=== PATIENT | female | born 1935 | race Caucasian/White ===

== ENCOUNTER 2017-10-26 10:39 | Emergency (ER) | payer MEDICARE, BC ==
[2017-10-26] MEDS ORDERED: Sodium Chloride 0.9% 1,000 ML IV ONE (11:27)
[2017-10-26] MEDS ORDERED: Ondansetron 4 MG/2 ML SDV IVPUSH ONE (11:27)
[2017-10-26] MEDS ORDERED: Ondansetron 4 MG/2 ML SDV ONE (11:42)
[2017-10-26] MEDS ORDERED: Ketorolac 30 MG/ML SDV IVPUSH ONE (12:27)
[2017-10-26] MEDS ORDERED: Ketorolac 30 MG/ML SDV ONE (12:42)
[2017-10-26] MEDS ORDERED: Sodium Chloride 0.9% 1,000 ML IV SCH (13:52)
[2017-10-26] MEDS ORDERED: metroNIDAZOLE/Normal Saline 500 MG in Premix Bag 1 BAG IV ONE (14:00)
[2017-10-26] MEDS ORDERED: cefTRIAXone 1 GM in Sodium Chloride 0.9% 50 ML IV ONE (14:02)
[2017-10-26] MEDS ORDERED: Morphine 2 MG/ML Syringe IVPUSH PRN (14:08)
[2017-10-26 14:47] VITALS: BP 112/63
--- NOTE | 2017-10-26 15:57 | ER ---
HPI: An 82-year-old lady who comes in by ambulance with complaints of nausea, vomiting, and abdominal pain that started during the night. The patient has not been running a fever to her knowledge. She denies any episodes of diarrhea. She has not been coughing and denies any shortness of breath. She states she just does not feel well. She has vomited several times. PAST MEDICAL HISTORY: Includes hypertension and chronic back pain. OBJECTIVE: GENERAL APPEARANCE: The patient is awake and alert. She appears drowsy. No respiratory distress. VITAL SIGNS: Initially revealed blood pressure of 129/70 , temp is 99.8, pulse is 129, O2 sats are 97%, respirations 20. Physical exam, oral mucous membranes are dry. Tonsils not enlarged or injected. Pharynx not inflamed. NECK: Supple. LUNGS: Clear. CARDIAC: Heart sounds distinct. S1, S2 present. No murmurs noted. ABDOMEN: Tender with guarding noted across the epigastric area and to a lesser degree of the periumbilical area. The lower quadrants appear to be nontender with palpation. Abdomen appears slightly distended. Bowel sounds are present, but hypoactive. SKIN: Warm and dry. LABS: Include a CBC showing a white count of 10.5 normal, hemoglobin is 9.7, neutrophils are 87.3. Comprehensive metabolic panel shows a potassium of 3.4, BUN is normal at 26, creatinine is normal at 0.98, blood sugar is 183, nonfasting. Liver enzymes are unremarkable. UA is normal. CT of the abdomen shows diverticulitis with severe diverticulosis involving the transverse colon with 1 abscess that is contained approximately 3 cm in size. There is also some inflammation of the ascending colon, thought to possibly be colitis. DIAGNOSIS: Acute abdominal pain with diverticulitis that involves an abscess. TREATMENT PLAN: I did consult with Dr. Dewey, hospitalist at [facility], and they accepted the patient. She will be transferred down there for further evaluation and treatment, possibly surgery. We did give the patient 15 mg of Toradol here IV followed by 2 mg of morphine to help with her pain and we also started antibiotics, Flagyl 500 mg IV followed by Rocephin 1 g IV. CRS/MODL /[id number] [facility]
--- NOTE | 2017-10-27 09:48 | CT ---
DATE OF SERVICE: 10/26/17 CLINICAL DATA: Acute abdominal pain with nausea and vomiting. UNENHANCED ABDOMEN AND PELVIC CT: Multislice acquisition through the abdomen and pelvis without IV or oral contrast was performed. Comparison is made to a prior exam dated 12/31/15. Breathing motion artifact degrades image quality. There are atelectatic changes in the dependent portion of both lungs. The lung bases are otherwise clear. The heart size is normal. There are coronary artery calcifications. There is a small hiatal hernia. There is diffuse gastric wall thickening. This is probably related to nondistension. Gastritis or an infiltrating process should be considered. The gallbladder is abnormal. It is mildly distended. There are multiple gallstones noted within the gallbladder. No pericholecystic fluid. The liver is normal size with homogeneous attenuation. No focal hepatic lesions. The spleen appears normal. The pancreas is mildly atrophic but otherwise appears normal. The right and left adrenals appear normal. There is a 2.2 cm fluid density lesion protruding from the upper pole of the left kidney. There is another 8.1 cm fluid density lesion protruding from the lower pole of the left kidney. These are consistent in appearance with benign cysts. There is a small nonobstructing renal calculi on the left. No hydronephrosis or hydroureter. The bladder is fluid-filled and appears normal. There is diverticulosis throughout the colon. There is pericolonic fat stranding adjacent to the mid transverse colon. This is consistent with diverticulitis. There is also a 2.8 cm gas and fluid-containing mass adjacent to the transverse colon with adjacent mural thickening. This is consistent in appearance with a diverticular abscess. The possibility of an infiltrating neoplasm with perforation should also be considered and colonoscopy after treatment is recommended. There is mural thickening within the cecum and ascending colon. Colitis should be considered. No free intraperitoneal air. There is a small amount of free fluid noted within the pelvis. There are multiple calcified lesions within the uterus consistent with uterine calcified leiomyoma. No adenopathy. No aortic aneurysm. No dilated loops of bowel. IMPRESSION: Diverticulosis. Findings involving transverse colon consistent with diverticulitis. There is an adjacent gas and fluid-containing mass as discussed above, most likely representing diverticular abscess. There is also adjacent mural thickening within the adjacent colon. The possibility of an infiltrating neoplasm with perforation should at least be considered. Colonoscopy after treatment is recommended. Multiple other findings as discussed above. [id number] MTDD
== END 2017-10-26 16:36 ==
LOC: LB.ED 10:39
DX: K57.92 Diverticulitis of intestine, part unspecified, without perforation or abscess without bleeding (principal); I10 Essential (primary) hypertension
CPT/HCPCS: 36415; 74176; 80053; 81001; 82150; 83690; 85025; 96361; 96365; 96367; 96375; 99285-25; A0425; A0429; J0696; J1885; J2270; J2405; J3490; J7030; J7050

== ENCOUNTER 2017-11-17 09:49 | Inpatient (IN) | payer MEDICARE, BC ==
[2017-11-17] MEDS ORDERED: Tuberculin, PPD 5 Units/0.1 ML 1 ML MDV IDERM ONE ×2 (14:12→14:23)
[2017-11-17] MEDS ORDERED: Acetaminophen 325 MG Tab PO PRN ×2 (15:51→19:26)
[2017-11-17] MEDS ORDERED: Ondansetron 4 MG Tab.DIS PO PRN (15:51)
[2017-11-17] MEDS ORDERED: Aluminum Hydroxide/Magnesium Hydroxide/Simethicone Susp 30 ML Cup PO PRN (15:51)
[2017-11-17] MEDS ORDERED: Nitroglycerin 0.4 MG Tab.SL SL PRN (16:00)
[2017-11-17] MEDS: Rivaroxaban 15 MG Tab PO SCH (17:22)
[2017-11-17] MEDS: traMADol 50 MG Tab PO SCH ×2 (17:22→19:43)
[2017-11-17] MEDS ORDERED: Lactobacillus Acidophilus/Lactobacillus Sporogenes (Probiotic) Tab ONE (17:39)
[2017-11-17] MEDS: metroNIDAZOLE 500 MG Tab PO SCH (19:42)
[2017-11-17] MEDS: Amitriptyline 25 MG Tab PO SCH (19:43)
[2017-11-17] MEDS ORDERED: PSYLLIUM PO SCH (20:00)
[2017-11-17] MEDS: Melatonin 3 MG Tab PO SCH (20:56)
[2017-11-18] MEDS: Clopidogrel 75 MG Tab PO SCH (07:33)
[2017-11-18] MEDS: Metoprolol Succinate 50 MG Tab.ER PO SCH (07:33)
[2017-11-18] MEDS: Diltiazem 180 MG Cap.CD PO SCH (07:34)
[2017-11-18] MEDS: metroNIDAZOLE 500 MG Tab PO SCH ×3 (07:34→20:11)
[2017-11-18] MEDS: Lisinopril 2.5 MG Tab PO SCH (07:34)
[2017-11-18] MEDS: Levofloxacin 500 MG Tab PO SCH (07:34)
[2017-11-18] MEDS: Isosorbide Mononitrate 30 MG Tab.ER PO SCH (07:34)
[2017-11-18] MEDS: Hydrochlorothiazide 25 MG Tab PO SCH (07:34)
[2017-11-18] MEDS: traMADol 50 MG Tab PO SCH ×5 (07:35→20:11)
[2017-11-18] MEDS: atorvaSTATin 20 MG Tab PO SCH (07:35)
[2017-11-18] MEDS: Multivitamins with Iron/Calcium/Folic Acid/Minerals Tab PO SCH (07:36)
[2017-11-18] MEDS ORDERED: Lactobacillus Acidophilus/Lactobacillus Sporogenes (Probiotic) Tab ONE (07:47)
[2017-11-18] MEDS: Lactobacillus Acidophilus/Lactobacillus Sporogenes (Probiotic) Tab PO SCH ×2 (08:00→12:29)
[2017-11-18] MEDS ORDERED: Lactobacillus Acidophilus/Lactobacillus Sporogenes (Probiotic) Tab PO SCH (08:00)
[2017-11-18] MEDS: Rivaroxaban 15 MG Tab PO SCH (16:15)
[2017-11-18] MEDS: Amitriptyline 25 MG Tab PO SCH (20:11)
[2017-11-18] MEDS: Melatonin 3 MG Tab PO SCH (20:11)
[2017-11-19] MEDS: Hydrochlorothiazide 25 MG Tab PO SCH (09:00)
[2017-11-19] MEDS: metroNIDAZOLE 500 MG Tab PO SCH ×3 (09:00→21:08)
[2017-11-19] MEDS: Metoprolol Succinate 50 MG Tab.ER PO SCH (09:01)
[2017-11-19] MEDS: Diltiazem 180 MG Cap.CD PO SCH (09:02)
[2017-11-19] MEDS: Multivitamins with Iron/Calcium/Folic Acid/Minerals Tab PO SCH (09:02)
[2017-11-19] MEDS: traMADol 50 MG Tab PO SCH ×4 (09:02→21:08)
[2017-11-19] MEDS: Isosorbide Mononitrate 30 MG Tab.ER PO SCH (09:02)
[2017-11-19] MEDS: Levofloxacin 500 MG Tab PO SCH (09:03)
[2017-11-19] MEDS: Clopidogrel 75 MG Tab PO SCH (09:03)
[2017-11-19] MEDS: Lisinopril 2.5 MG Tab PO SCH (09:03)
[2017-11-19] MEDS: atorvaSTATin 20 MG Tab PO SCH (09:03)
--- NOTE | 2017-11-19 11:47 | PCM.HP ---
H&P History of Present Illness - General Date of Service: 11/19/17 Admit Problem/Dx: Admission Diagnosis/Problem Admission Diagnosis/Problem Weakness Source of Information: Patient, Family, Old Records History Limitations: Reports: No Limitations - History of Present Illness Initial Comments - Free Text/Narative: This is a 82yo F with a recent right hemicolectomy for diverticulitis admitted to [facility] bed for wound care and physical therapy. Patient denies any concerns at this time with good pain control and diet. Location: Reports: Abdomen - Related Data Allergies/Adverse Reactions: Allergies Allergy/AdvReac Type Severity Reaction Status Date / Time No Known Allergies Allergy Verified 11/17/17 17:06 Home Medications: Home Meds Amitriptyline [Elavil] 25 mg PO BEDTIME 09/22/14 [History] Hydrochlorothiazide 25 mg PO DAILY 09/22/14 [History] traMADol HCl [Tramadol HCl] 50 mg PO QID 10/26/17 [History] Acetaminophen [Tylenol] 325 mg PO ASDIRECTED PRN 11/17/17 [History] Alum Hydrox/Mag Hydrox/Simeth [Mag-Al Plus] 30 ml PO Q4H PRN 11/17/17 [History] Clopidogrel [Plavix] 75 mg PO DAILY 11/17/17 [History] Diltiazem HCl [Diltiazem 24Hr ER] 180 mg PO DAILY 11/17/17 [History] Isosorbide Mononitrate [Imdur] 30 mg PO DAILY 11/17/17 [History] L. Acidophilus/Pectin, [employer] [Acidophilus Probiotic] 1 tab PO TID 11/17/17 [ History] Levofloxacin 500 mg PO DAILY 11/17/17 [History] Lisinopril 2.5 mg PO DAILY 11/17/17 [History] Metoprolol Succinate [Toprol XL 50mg] 50 mg PO DAILY 11/17/17 [History] Multivitamin [Multi-Vitamin Daily] 1 tab PO DAILY 11/17/17 [History] Nitroglycerin [Nitrostat] 1 tab PO ASDIRECTED 11/17/17 [History] Ondansetron [Zofran ODT] 4 mg PO ASDIRECTED PRN 11/17/17 [History] Psyllium [Metamucil] 2 cap PO BID 11/17/17 [History] Ranitidine HCl [Ranitidine] 150 mg PO DAILY 11/17/17 [History] Rivaroxaban [Xarelto] 15 mg PO DAILY 11/17/17 [History] atorvaSTATin [Lipitor] 20 mg PO DAILY 11/17/17 [History] metroNIDAZOLE [Metronidazole] 500 mg PO TID 11/17/17 [History] Past Medical History HEENT History: Reports: Cataract, Impaired Vision, Macular Degeneration Cardiovascular History: Reports: Afib, Arrhythmia, CAD, Hypertension, IA, Other (See Below) Other Cardiovascular History: A-fib. 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 Musculoskeletal History: Reports: Back Pain, Chronic, Fibromyalgia Psychiatric History: Reports: Depression Endocrine/Metabolic History: Reports: Hyperthyroidism Oncologic (Cancer) History: Reports: Colon - Infectious Disease History Infectious Disease History: Reports: Chicken Pox, Measles, Mumps - Past Surgical History HEENT Surgical History: Reports: Cataract Surgery GI Surgical History: Reports: Colon Other GI Surgeries/Procedures: Laporascopic Transvers colectomy 11/10/17 Female Surgical History: Reports: Other (See Below) Other Female Surgeries/Procedures: surgical intervention for prolapsed uterus Endocrine Surgical History: Reports: None Musculoskeletal Surgical History: Reports: None Oncologic Surgical History: Reports: Other (See Below) Other Oncologic Surgeries/Procedures: 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 Exam - Exam Exam: See Below - Vital Signs Vital Signs: Last Vital Signs Temp 36.7 C 11/18/17 20:00 Pulse 108 H 11/19/17 09:02 Resp 18 11/18/17 20:00 BP 120/65 11/19/17 09:03 Pulse Ox 95 08/16/18 20:00 Weight: 59.829 kg - Exam General: Alert, Oriented, Cooperative HEENT: PERRLA, Conjunctiva Clear Neck: Supple, Trachea Midline Lungs: Clear to Auscultation, Normal Respiratory Effort Cardiovascular: Regular Rate, Regular Rhythm GI/Abdominal Exam: Normal Bowel Sounds, Soft, Non-Tender Extremities: Normal Inspection Peripheral Pulses: 2+: Dorsalis Pedis (L), Dorsalis Pedis (R) Skin: Wound, Incision (healing) Neuro Extensive - Mental Status: Alert, Oriented x3 - Patient Data Lab Results Last 24 hrs: Laboratory Results - last 24 hr 11/19/17 11/19/17 Range/Units 10:50 10:50 WBC 7.1 D (4.0-11.0) K/uL RBC 3.53 L (3.80-5.80) M/uL Hgb 8.8 L (11.5-16.5) g/dL Hct 28.1 L (37.0-47.0) % MCV 80 (76-96) fL MCH 24.9 L (27.0-32.0) pg MCHC 31.3 (31.0-35.0) g/dL RDW 18.7 H (11.0-16.0) % Plt Count 307 (150-500) K/uL MPV 8.6 (6.0-10.0) fL Neut % (Auto) 81.1 H (45.0-70.0) % Lymph % (Auto) 9.1 L (20.0-40.0) % [place] % (Auto) 8.2 (3.0-10.0) % Eos % (Auto) 1.0 (1.0-5.0) % Baso % (Auto) 0.6 H (0.0-0.5) % Neut # (Auto) 5.77 (2.00-7.50) K/uL Lymph # (Auto) 0.65 L (1.50-4.00) K/uL [place] # (Auto) 0.58 (0.20-0.80) K/uL Eos # (Auto) 0.07 (0.04-0.40) K/uL Baso # (Auto) 0.04 (0.02-0.10) K/uL Sodium 136 (136-145) mmol/L Potassium 4.1 D (3.5-5.1) mmol/L Chloride 103 (98-107) mmol/L Carbon Dioxide 29.6 (21.0-32.0) mmol/L Anion Gap 7.5 (5.0-15.0) mmol/L BUN 13 D (8-26) mg/dL Creatinine 0.71 D (0.55-1.02) mg/dL Est Cr Clr Drug Dosing 46.65 mL/min Estimated GFR (MDRD) > 60 (>60) MLS/MIN BUN/Creatinine Ratio 18.3 (6-25) Glucose 195 H (74-100) mg/dL Calcium 7.7 L (8.5-10.1) mg/dL Total Bilirubin 0.3 (0.0-1.0) mg/dL AST 16 (15-37) U/L ALT 12 (12-78) U/L Alkaline Phosphatase 34 L (46-116) U/L Total Protein 5.0 L (6.4-8.2) g/dL Albumin 1.7 L (3.4-5.0) g/dL Globulin 3.3 (2.2-4.2) g/dL Albumin/Globulin Ratio 0.5 L (0.8-2.0) Result Diagrams: 11/19/17 10:50 11/19/17 10:50 - Problem List (1) Encounter for postoperative care Status: Acute Priority: High Current Visit: Yes (2) H/O right hemicolectomy SNOMED Code(s): 793452590 ICD Code: Z90.49 - ACQUIRED ABSENCE OF OTHER SPECIFIED PARTS OF DIGESTIVE TRACT Status: Acute Priority: High Current Visit: Yes Problem List Initiated/Reviewed/Updated: Yes Orders Last 24hrs: Active Orders 24 hr Category Date Time Status BASIC METABOLIC PANEL,BMP [CHEM] AM Lab 11/20/17 05:11 Ordered CBC WITH AUTO DIFF [HEME] AM Lab 11/20/17 05:11 Ordered Acidophilus/Lactobac Spor [Acidolphilus Extra Strength] Med 11/18/17 12:00 Active 1 tab PO DAILY@1200 Ranitidine [Zantac] Med 11/18/17 20:00 Active 150 mg PO BEDTIME Medication Orders Acetaminophen (Tylenol) 325 - 650 mg PO Q4H PRN PRN Reason: MILD PAIN 1-3 PAIN SCALE Al Hydroxide/Mg Hydroxide (Mag-Al Plus) 30 ml PO Q4H PRN PRN Reason: Indigestion Amitriptyline HCl (Elavil) 25 mg PO BEDTIME [facility] Last Admin: 11/18/17 20:11 Dose: 25 mg Admin: 11/17/17 19:43 Dose: 25 mg Atorvastatin Calcium (Lipitor) 20 mg PO DAILY [facility] Last Admin: 11/19/17 09:03 Dose: 20 mg Admin: 11/18/17 07:35 Dose: 20 mg Clopidogrel Bisulfate (Plavix) 75 mg PO DAILY [facility] Last Admin: 11/19/17 09:03 Dose: 75 mg Admin: 11/18/17 07:33 Dose: 75 mg Diltiazem HCl (Cardizem Cd) 180 mg PO DAILY [facility] Last Admin: 11/19/17 09:02 Dose: 180 mg Admin: 11/18/17 07:34 Dose: 180 mg Hydrochlorothiazide (Hydrochlorothiazide) 25 mg PO DAILY [facility] Last Admin: 11/19/17 09:00 Dose: 25 mg Admin: 11/18/17 07:34 Dose: 25 mg Isosorbide Mononitrate (Imdur) 30 mg PO DAILY [facility] Last Admin: 11/19/17 09:02 Dose: 30 mg Admin: 11/18/17 07:34 Dose: 30 mg Lactobacillus Acidophilus (Acidolphilus Extra Strength) 1 tab PO DAILY@1200 [facility] Last Admin: 11/18/17 12:29 Dose: Not Given Admin: 11/18/17 08:00 Dose: 1 tab Levofloxacin (Levaquin) 500 mg PO DAILY [facility] Stop: 11/25/17 08:01 Last Admin: 11/19/17 09:03 Dose: 500 mg Admin: 11/18/17 07:34 Dose: 500 mg Lisinopril (Prinivil) 2.5 mg PO DAILY [facility] Last Admin: 11/19/17 09:03 Dose: 2.5 mg Admin: 11/18/17 07:34 Dose: 2.5 mg Melatonin (Melatonin) 3 mg PO BEDTIME [facility] Last Admin: 11/18/17 20:11 Dose: 3 mg Admin: 11/17/17 20:56 Dose: 3 mg Metoprolol Succinate (Toprol Xl) 50 mg PO DAILY [facility] Last Admin: 11/19/17 09:01 Dose: 50 mg Admin: 11/18/17 07:33 Dose: 50 mg Metronidazole (Flagyl) 500 mg PO TID [facility] Stop: 11/25/17 08:01 Last Admin: 11/19/17 09:00 Dose: 500 mg Admin: 11/18/17 20:11 Dose: 500 mg Admin: 11/18/17 13:48 Dose: 500 mg Admin: 11/18/17 07:34 Dose: 500 mg Admin: 11/17/17 19:42 Dose: 500 mg Multivitamins/Minerals (Thera M Plus) 1 tab PO DAILY [facility] Last Admin: 11/19/17 09:02 Dose: 1 tab Admin: 11/18/17 07:36 Dose: 1 tab Nitroglycerin (Nitrostat) 0.4 mg SL ASDIRECTED PRN PRN Reason: CHEST PAIN Non-Formulary Medication (Psyllium [Metamucil]) 2 cap PO BID [facility] Ondansetron HCl (Zofran Odt) 4 mg PO Q6H PRN PRN Reason: Nausea Ranitidine HCl (Zantac) 150 mg PO BEDTIME [facility] Last Admin: 11/18/17 20:11 Dose: 150 mg Rivaroxaban (Xarelto) 15 mg PO DAILY@1700 [facility] Last Admin: 11/18/17 16:15 Dose: 15 mg Admin: 11/17/17 17:22 Dose: 15 mg Tramadol HCl (Ultram) 50 mg PO QID [facility] Last Admin: 11/19/17 09:02 Dose: 50 mg Admin: 11/18/17 20:11 Dose: 50 mg Admin: 11/18/17 16:14 Dose: 50 mg Admin: 11/18/17 15:39 Dose: 50 mg Admin: 11/18/17 12:29 Dose: Not Given Admin: 11/18/17 07:35 Dose: 50 mg Admin: 11/17/17 19:43 Dose: 50 mg Admin: 11/17/17 17:22 Dose: 50 mg Assessment/Plan Comment:: Patient will be monitored for wound care, strengthening and medication management. Continue pain management.
--- NOTE | 2017-11-19 11:50 | PCM.SN ---
- Free Text/Narrative Note: Stanley bright red blood par rectum today about 1/2 cup with loose brown stools. Discussed with Claudia (direct line [phone]) and CBC/labs were done and then discussed with Dr. Kaur on line. He recommends monitoring at this time as this can be expected. However, if symptoms progress, bleeding continues for transfer to [place] for monitoring. He will relay the information to Dr. Lozano ad operations associate this weekend. They are currently checking on whether to hold the Plavix with Dr. Dey at this time and will get back to us. Continuing current monitoring and we will repeat labs in AM.
[2017-11-19] MEDS: Lactobacillus Acidophilus/Lactobacillus Sporogenes (Probiotic) Tab PO SCH (14:38)
[2017-11-19] MEDS: Rivaroxaban 15 MG Tab PO SCH (18:17)
[2017-11-19] MEDS: Melatonin 3 MG Tab PO SCH (21:08)
[2017-11-19] MEDS: Amitriptyline 25 MG Tab PO SCH (21:08)
[2017-11-20] MEDS: traMADol 50 MG Tab PO SCH ×4 (08:44→19:55)
[2017-11-20] MEDS: Lisinopril 2.5 MG Tab PO SCH (08:45)
[2017-11-20] MEDS: Levofloxacin 500 MG Tab PO SCH (08:58)
[2017-11-20] MEDS: Isosorbide Mononitrate 30 MG Tab.ER PO SCH (08:59)
[2017-11-20] MEDS: atorvaSTATin 20 MG Tab PO SCH (08:59)
[2017-11-20] MEDS: Diltiazem 180 MG Cap.CD PO SCH (08:59)
[2017-11-20] MEDS: Multivitamins with Iron/Calcium/Folic Acid/Minerals Tab PO SCH (09:01)
[2017-11-20] MEDS: Metoprolol Succinate 50 MG Tab.ER PO SCH (09:01)
[2017-11-20] MEDS: metroNIDAZOLE 500 MG Tab PO SCH ×3 (09:02→19:56)
[2017-11-20] MEDS: Hydrochlorothiazide 25 MG Tab PO SCH (09:02)
[2017-11-20] MEDS: Lactobacillus Acidophilus/Lactobacillus Sporogenes (Probiotic) Tab PO SCH (14:34)
[2017-11-20] MEDS: Melatonin 3 MG Tab PO SCH (19:55)
[2017-11-20] MEDS: Amitriptyline 25 MG Tab PO SCH (19:55)
[2017-11-21] MEDS: traMADol 50 MG Tab PO SCH ×4 (08:30→19:24)
[2017-11-21] MEDS: metroNIDAZOLE 500 MG Tab PO SCH ×3 (08:34→19:24)
[2017-11-21] MEDS: Diltiazem 180 MG Cap.CD PO SCH (08:34)
[2017-11-21] MEDS: Isosorbide Mononitrate 30 MG Tab.ER PO SCH (08:35)
[2017-11-21] MEDS: Hydrochlorothiazide 25 MG Tab PO SCH (08:35)
[2017-11-21] MEDS: Levofloxacin 500 MG Tab PO SCH (08:36)
[2017-11-21] MEDS: Lisinopril 2.5 MG Tab PO SCH (08:36)
[2017-11-21] MEDS: Multivitamins with Iron/Calcium/Folic Acid/Minerals Tab PO SCH (08:37)
[2017-11-21] MEDS: Metoprolol Succinate 50 MG Tab.ER PO SCH (08:38)
[2017-11-21] MEDS: atorvaSTATin 20 MG Tab PO SCH (08:40)
[2017-11-21] MEDS: Lactobacillus Acidophilus/Lactobacillus Sporogenes (Probiotic) Tab PO SCH (12:39)
[2017-11-21] MEDS: Melatonin 3 MG Tab PO SCH (19:25)
[2017-11-21] MEDS: Amitriptyline 25 MG Tab PO SCH (19:25)
[2017-11-22] MEDS: Multivitamins with Iron/Calcium/Folic Acid/Minerals Tab PO SCH (08:21)
[2017-11-22] MEDS: Levofloxacin 500 MG Tab PO SCH (08:21)
[2017-11-22] MEDS: atorvaSTATin 20 MG Tab PO SCH (08:22)
[2017-11-22] MEDS: metroNIDAZOLE 500 MG Tab PO SCH ×3 (08:23→19:57)
[2017-11-22] MEDS: traMADol 50 MG Tab PO SCH ×4 (08:23→19:57)
[2017-11-22] MEDS: Diltiazem 180 MG Cap.CD PO SCH (08:27)
[2017-11-22] MEDS: Metoprolol Succinate 50 MG Tab.ER PO SCH (08:27)
[2017-11-22] MEDS: Lisinopril 2.5 MG Tab PO SCH (08:27)
[2017-11-22] MEDS: Isosorbide Mononitrate 30 MG Tab.ER PO SCH (08:27)
[2017-11-22] MEDS: Hydrochlorothiazide 25 MG Tab PO SCH (08:28)
[2017-11-22] MEDS: Lactobacillus Acidophilus/Lactobacillus Sporogenes (Probiotic) Tab PO SCH (11:57)
--- NOTE | 2017-11-22 17:09 | PCM.PN ---
- General Info Date of Service: 11/22/17 Subjective Update: Patient is doing well and improving daily. She denies any difficulty with walking but taking her time to improve on her strength with PT/OT. No concerns. Functional Status: Reports: Pain Controlled, Tolerating Diet, Ambulating - Review of Systems General: Reports: Weakness HEENT: Reports: No Symptoms Pulmonary: Reports: No Symptoms Cardiovascular: Reports: No Symptoms Gastrointestinal: Reports: No Symptoms Genitourinary: Reports: No Symptoms Musculoskeletal: Reports: Joint Pain - Patient Data Vitals - Most Recent: Last Vital Signs Temp 36.7 C 11/22/17 08:00 Pulse 106 H 11/22/17 08:27 Resp 20 11/22/17 08:00 BP 131/83 11/22/17 08:27 Pulse Ox 98 11/22/17 08:00 Weight - Most Recent: 53.524 kg I&O - Last 24 Hours: Intake & Output 11/22/17 11/22/17 11/22/17 06:59 14:59 22:59 Output Total 865 Balance -865 Lab Results Last 24 Hours: Laboratory Results - last 24 hr 11/22/17 11/22/17 Range/Units 12:05 12:05 WBC 10.1 D (4.0-11.0) K/uL RBC 3.91 (3.80-5.80) M/uL Hgb 9.7 L (11.5-16.5) g/dL Hct 31.0 L (37.0-47.0) % MCV 79 (76-96) fL MCH 24.8 L (27.0-32.0) pg MCHC 31.3 (31.0-35.0) g/dL RDW 18.8 H (11.0-16.0) % Plt Count 473 D (150-500) K/uL MPV 8.5 (6.0-10.0) fL Neut % (Auto) 78.1 H (45.0-70.0) % Lymph % (Auto) 11.3 L (20.0-40.0) % [place] % (Auto) 9.3 (3.0-10.0) % Eos % (Auto) 0.9 L (1.0-5.0) % Baso % (Auto) 0.4 (0.0-0.5) % Neut # (Auto) 7.90 H (2.00-7.50) K/uL Lymph # (Auto) 1.14 L (1.50-4.00) K/uL [place] # (Auto) 0.94 H (0.20-0.80) K/uL Eos # (Auto) 0.09 (0.04-0.40) K/uL Baso # (Auto) 0.04 (0.02-0.10) K/uL Sodium 134 L (136-145) mmol/L Potassium 4.2 (3.5-5.1) mmol/L Chloride 99 (98-107) mmol/L Carbon Dioxide 28.6 (21.0-32.0) mmol/L Anion Gap 10.6 (5.0-15.0) mmol/L BUN 14 D (8-26) mg/dL Creatinine 0.75 (0.55-1.02) mg/dL Est Cr Clr Drug Dosing 44.16 mL/min Estimated GFR (MDRD) > 60 (>60) MLS/MIN BUN/Creatinine Ratio 18.7 (6-25) Glucose 180 H (74-100) mg/dL Calcium 8.7 (8.5-10.1) mg/dL Med Orders - Current: Current Medications Acetaminophen (Tylenol) 325 - 650 mg PO Q4H PRN PRN Reason: MILD PAIN 1-3 PAIN SCALE Al Hydroxide/Mg Hydroxide (Mag-Al Plus) 30 ml PO Q4H PRN PRN Reason: Indigestion Amitriptyline HCl (Elavil) 25 mg PO BEDTIME [facility] Last Admin: 11/21/17 19:25 Dose: 25 mg Atorvastatin Calcium (Lipitor) 20 mg PO DAILY [facility] Last Admin: 11/22/17 08:22 Dose: 20 mg Clopidogrel Bisulfate (Plavix) 75 mg PO DAILY [facility] Last Admin: 11/19/17 09:03 Dose: 75 mg Diltiazem HCl (Cardizem Cd) 180 mg PO DAILY [facility] Last Admin: 11/22/17 08:27 Dose: 180 mg Hydrochlorothiazide (Hydrochlorothiazide) 25 mg PO DAILY [facility] Last Admin: 11/22/17 08:28 Dose: 25 mg Isosorbide Mononitrate (Imdur) 30 mg PO DAILY [facility] Last Admin: 11/22/17 08:27 Dose: 30 mg Lactobacillus Acidophilus (Acidolphilus Extra Strength) 1 tab PO DAILY@1200 [facility] Last Admin: 11/22/17 11:57 Dose: 1 tab Levofloxacin (Levaquin) 500 mg PO DAILY [facility] Stop: 11/25/17 08:01 Last Admin: 11/22/17 08:21 Dose: 500 mg Lisinopril (Prinivil) 2.5 mg PO DAILY [facility] Last Admin: 11/22/17 08:27 Dose: 2.5 mg Melatonin (Melatonin) 3 mg PO BEDTIME [facility] Last Admin: 11/21/17 19:25 Dose: 3 mg Metoprolol Succinate (Toprol Xl) 50 mg PO DAILY [facility] Last Admin: 11/22/17 08:27 Dose: 50 mg Metronidazole (Flagyl) 500 mg PO TID [facility] Stop: 11/25/17 08:01 Last Admin: 11/22/17 14:45 Dose: 500 mg Multivitamins/Minerals (Thera M Plus) 1 tab PO DAILY [facility] Last Admin: 11/22/17 08:21 Dose: 1 tab Nitroglycerin (Nitrostat) 0.4 mg SL ASDIRECTED PRN PRN Reason: CHEST PAIN Non-Formulary Medication (Psyllium [Metamucil]) 2 cap PO BID [facility] Ondansetron HCl (Zofran Odt) 4 mg PO Q6H PRN PRN Reason: Nausea Ranitidine HCl (Zantac) 150 mg PO BEDTIME [facility] Last Admin: 11/21/17 19:24 Dose: 150 mg Rivaroxaban (Xarelto) 15 mg PO DAILY@1700 [facility] Last Admin: 11/19/17 18:17 Dose: Not Given Tramadol HCl (Ultram) 50 mg PO QID [facility] Last Admin: 11/22/17 16:48 Dose: Not Given Discontinued Medications Acetaminophen (Tylenol) 325 mg PO ASDIRECTED PRN PRN Reason: pain Lactobacillus Acidophilus (Acidolphilus Extra Strength) 1 tab PO DAILY [facility] Last Admin: 11/18/17 07:36 Dose: 1 tab Lactobacillus Acidophilus (Acidolphilus Extra Strength) Confirm Administered Dose 1 tab .ROUTE .STK-MED ONE Stop: 11/17/17 17:40 Last Admin: 11/17/17 17:30 Dose: 1 tab Lactobacillus Acidophilus (Acidolphilus Extra Strength) Confirm Administered Dose 1 tab .ROUTE .STK-MED ONE Stop: 11/18/17 07:48 Last Admin: 11/18/17 09:39 Dose: Not Given Tuberculin PPD (Aplisol) 5 unit IDERM ONETIME ONE Stop: 11/17/17 14:24 Last Admin: 11/17/17 17:20 Dose: 5 unit Tuberculin PPD (Aplisol) 5 unit IDERM ONETIME ONE Stop: 11/17/17 14:13 Last Admin: 11/17/17 17:22 Dose: Not Given - Exam General: Alert, Oriented, Cooperative HEENT: Pupils Equal Neck: Supple Lungs: Clear to Auscultation, Normal Respiratory Effort Cardiovascular: Regular Rate, Regular Rhythm Back Exam: Normal Inspection Extremities: Normal Inspection Peripheral Pulses: 2+: Dorsalis Pedis (L), Dorsalis Pedis (R) Skin: Warm, Dry, Intact Wound/Incisions: Healing Well - Problem List & Annotations (1) Encounter for postoperative care Status: Acute Priority: High Current Visit: Yes (2) H/O right hemicolectomy SNOMED Code(s): 061655510 Code(s): Z90.49 - ACQUIRED ABSENCE OF OTHER SPECIFIED PARTS OF DIGESTIVE TRACT Status: Acute Priority: High Current Visit: Yes - Problem List Review Problem List Initiated/Reviewed/Updated: Yes - Plan Plan:: Patient will be monitored for wound care, strengthening and medication management. Continue pain management.
[2017-11-22] MEDS: Melatonin 3 MG Tab PO SCH (19:56)
[2017-11-22] MEDS: Amitriptyline 25 MG Tab PO SCH (19:56)
[2017-11-23] MEDS: Lisinopril 2.5 MG Tab PO SCH (07:57)
[2017-11-23] MEDS: Levofloxacin 500 MG Tab PO SCH (07:57)
[2017-11-23] MEDS: Isosorbide Mononitrate 30 MG Tab.ER PO SCH (07:57)
[2017-11-23] MEDS: Multivitamins with Iron/Calcium/Folic Acid/Minerals Tab PO SCH (07:57)
[2017-11-23] MEDS: traMADol 50 MG Tab PO SCH ×4 (07:57→20:40)
[2017-11-23] MEDS: atorvaSTATin 20 MG Tab PO SCH (07:57)
[2017-11-23] MEDS: Hydrochlorothiazide 25 MG Tab PO SCH (07:58)
[2017-11-23] MEDS: metroNIDAZOLE 500 MG Tab PO SCH ×3 (07:58→20:40)
[2017-11-23] MEDS: Diltiazem 180 MG Cap.CD PO SCH (07:58)
[2017-11-23] MEDS: Metoprolol Succinate 50 MG Tab.ER PO SCH (07:58)
[2017-11-23] MEDS: Clopidogrel 75 MG Tab PO SCH (08:02)
[2017-11-23] MEDS: Lactobacillus Acidophilus/Lactobacillus Sporogenes (Probiotic) Tab PO SCH (12:03)
[2017-11-23] MEDS: Rivaroxaban 15 MG Tab PO SCH (17:13)
[2017-11-23] MEDS: Amitriptyline 25 MG Tab PO SCH (20:40)
[2017-11-23] MEDS: Melatonin 3 MG Tab PO SCH (20:40)
[2017-11-24] MEDS: Clopidogrel 75 MG Tab PO SCH (08:08)
[2017-11-24] MEDS: Diltiazem 180 MG Cap.CD PO SCH (08:08)
[2017-11-24] MEDS: Hydrochlorothiazide 25 MG Tab PO SCH (08:08)
[2017-11-24] MEDS: Levofloxacin 500 MG Tab PO SCH (08:09)
[2017-11-24] MEDS: Multivitamins with Iron/Calcium/Folic Acid/Minerals Tab PO SCH (08:09)
[2017-11-24] MEDS: Isosorbide Mononitrate 30 MG Tab.ER PO SCH (08:09)
[2017-11-24] MEDS: Lisinopril 2.5 MG Tab PO SCH (08:09)
[2017-11-24] MEDS: atorvaSTATin 20 MG Tab PO SCH (08:09)
[2017-11-24] MEDS: Metoprolol Succinate 50 MG Tab.ER PO SCH (08:10)
[2017-11-24] MEDS: traMADol 50 MG Tab PO SCH ×5 (08:10→22:15)
[2017-11-24] MEDS: metroNIDAZOLE 500 MG Tab PO SCH ×3 (08:10→20:18)
[2017-11-24] MEDS: Lactobacillus Acidophilus/Lactobacillus Sporogenes (Probiotic) Tab PO SCH (11:10)
[2017-11-24] MEDS: Rivaroxaban 15 MG Tab PO SCH (18:04)
[2017-11-24] MEDS: Amitriptyline 25 MG Tab PO SCH (20:18)
[2017-11-24] MEDS: Melatonin 3 MG Tab PO SCH (20:18)
[2017-11-25] MEDS: Clopidogrel 75 MG Tab PO SCH (08:00)
[2017-11-25] MEDS: Isosorbide Mononitrate 30 MG Tab.ER PO SCH (08:00)
[2017-11-25] MEDS: metroNIDAZOLE 500 MG Tab PO SCH (08:00)
[2017-11-25] MEDS: Multivitamins with Iron/Calcium/Folic Acid/Minerals Tab PO SCH (08:01)
[2017-11-25] MEDS: Lisinopril 2.5 MG Tab PO SCH (08:01)
[2017-11-25] MEDS: Metoprolol Succinate 50 MG Tab.ER PO SCH (08:01)
[2017-11-25] MEDS: Hydrochlorothiazide 25 MG Tab PO SCH (08:01)
[2017-11-25] MEDS: Diltiazem 180 MG Cap.CD PO SCH (08:01)
[2017-11-25] MEDS: traMADol 50 MG Tab PO SCH ×4 (08:02→19:38)
[2017-11-25] MEDS: atorvaSTATin 20 MG Tab PO SCH (08:02)
[2017-11-25] MEDS: Levofloxacin 500 MG Tab PO SCH (08:02)
[2017-11-25] MEDS: Lactobacillus Acidophilus/Lactobacillus Sporogenes (Probiotic) Tab PO SCH (12:01)
[2017-11-25] MEDS ORDERED: glipiZIDE 2.5 MG Tab.ER PO SCH (12:15)
[2017-11-25] MEDS: Rivaroxaban 15 MG Tab PO SCH (16:49)
[2017-11-25] MEDS: Amitriptyline 25 MG Tab PO SCH (19:39)
[2017-11-25] MEDS: Melatonin 3 MG Tab PO SCH (19:39)
[2017-11-26] MEDS: atorvaSTATin 20 MG Tab PO SCH (08:39)
[2017-11-26] MEDS: Isosorbide Mononitrate 30 MG Tab.ER PO SCH (08:39)
[2017-11-26] MEDS: Clopidogrel 75 MG Tab PO SCH (08:39)
[2017-11-26] MEDS: Lisinopril 2.5 MG Tab PO SCH (08:39)
[2017-11-26] MEDS: Hydrochlorothiazide 25 MG Tab PO SCH (08:39)
[2017-11-26] MEDS: traMADol 50 MG Tab PO SCH ×4 (08:39→20:26)
[2017-11-26] MEDS: Metoprolol Succinate 50 MG Tab.ER PO SCH (08:40)
[2017-11-26] MEDS: Multivitamins with Iron/Calcium/Folic Acid/Minerals Tab PO SCH (08:40)
[2017-11-26] MEDS: Diltiazem 180 MG Cap.CD PO SCH (08:41)
[2017-11-26] MEDS: glipiZIDE 2.5 MG Tab.ER PO SCH (12:25)
[2017-11-26] MEDS: Lactobacillus Acidophilus/Lactobacillus Sporogenes (Probiotic) Tab PO SCH (12:25)
[2017-11-26] MEDS: Rivaroxaban 15 MG Tab PO SCH (16:40)
[2017-11-26] MEDS: Melatonin 3 MG Tab PO SCH (20:26)
[2017-11-26] MEDS: Amitriptyline 25 MG Tab PO SCH (20:26)
[2017-11-27] MEDS: Lisinopril 2.5 MG Tab PO SCH (08:31)
[2017-11-27] MEDS: Multivitamins with Iron/Calcium/Folic Acid/Minerals Tab PO SCH (08:32)
[2017-11-27] MEDS: traMADol 50 MG Tab PO SCH ×4 (08:32→19:36)
[2017-11-27] MEDS: Diltiazem 180 MG Cap.CD PO SCH (08:32)
[2017-11-27] MEDS: atorvaSTATin 20 MG Tab PO SCH (08:32)
[2017-11-27] MEDS: Hydrochlorothiazide 25 MG Tab PO SCH (08:32)
[2017-11-27] MEDS: Clopidogrel 75 MG Tab PO SCH (08:32)
[2017-11-27] MEDS: Isosorbide Mononitrate 30 MG Tab.ER PO SCH (08:33)
[2017-11-27] MEDS: Metoprolol Succinate 50 MG Tab.ER PO SCH (08:34)
[2017-11-27] MEDS: glipiZIDE 2.5 MG Tab.ER PO SCH (12:11)
[2017-11-27] MEDS: Lactobacillus Acidophilus/Lactobacillus Sporogenes (Probiotic) Tab PO SCH (12:12)
[2017-11-27] MEDS: Rivaroxaban 15 MG Tab PO SCH (16:48)
[2017-11-27] MEDS: Amitriptyline 25 MG Tab PO SCH (19:36)
[2017-11-27] MEDS: Melatonin 3 MG Tab PO SCH (19:36)
[2017-11-28] MEDS: Isosorbide Mononitrate 30 MG Tab.ER PO SCH (07:59)
[2017-11-28] MEDS: Diltiazem 180 MG Cap.CD PO SCH (08:00)
[2017-11-28] MEDS: Multivitamins with Iron/Calcium/Folic Acid/Minerals Tab PO SCH (08:00)
[2017-11-28] MEDS: Hydrochlorothiazide 25 MG Tab PO SCH (08:00)
[2017-11-28] MEDS: atorvaSTATin 20 MG Tab PO SCH (08:00)
[2017-11-28] MEDS: Metoprolol Succinate 50 MG Tab.ER PO SCH (08:01)
[2017-11-28] MEDS: Lisinopril 2.5 MG Tab PO SCH (08:01)
[2017-11-28] MEDS: traMADol 50 MG Tab PO SCH ×4 (08:01→19:05)
[2017-11-28] MEDS: Clopidogrel 75 MG Tab PO SCH (08:01)
[2017-11-28] MEDS: Lactobacillus Acidophilus/Lactobacillus Sporogenes (Probiotic) Tab PO SCH (11:44)
[2017-11-28] MEDS: glipiZIDE 2.5 MG Tab.ER PO SCH (11:44)
[2017-11-28] MEDS: Rivaroxaban 15 MG Tab PO SCH (16:39)
[2017-11-28] MEDS: Melatonin 3 MG Tab PO SCH (19:05)
[2017-11-28] MEDS: Amitriptyline 25 MG Tab PO SCH (19:05)
[2017-11-29 08:11] VITALS: BP 128/69
[2017-11-29] MEDS: Lisinopril 2.5 MG Tab PO SCH (08:13)
[2017-11-29] MEDS: Isosorbide Mononitrate 30 MG Tab.ER PO SCH (08:13)
[2017-11-29] MEDS: Clopidogrel 75 MG Tab PO SCH (08:14)
[2017-11-29] MEDS: Hydrochlorothiazide 25 MG Tab PO SCH (08:14)
[2017-11-29] MEDS: atorvaSTATin 20 MG Tab PO SCH (08:14)
[2017-11-29] MEDS: Diltiazem 180 MG Cap.CD PO SCH (08:14)
[2017-11-29] MEDS: Metoprolol Succinate 50 MG Tab.ER PO SCH (08:14)
[2017-11-29] MEDS: traMADol 50 MG Tab PO SCH ×2 (08:15→11:56)
[2017-11-29] MEDS: Multivitamins with Iron/Calcium/Folic Acid/Minerals Tab PO SCH (08:15)
[2017-11-29] MEDS: glipiZIDE 2.5 MG Tab.ER PO SCH (11:56)
[2017-11-29] MEDS: Lactobacillus Acidophilus/Lactobacillus Sporogenes (Probiotic) Tab PO SCH (11:56)
--- NOTE | 2017-11-29 14:05 | PCM.DCSUM1 ---
Discharge Summary - Discharge Data Discharge Date: 11/29/17 Discharge Disposition: Home, Self-Care 01 Condition: Good - Discharge Diagnosis/Problem(s) (1) Encounter for postoperative care Status: Acute Priority: High Current Visit: Yes (2) H/O right hemicolectomy SNOMED Code(s): 236943350 ICD Code: Z90.49 - ACQUIRED ABSENCE OF OTHER SPECIFIED PARTS OF DIGESTIVE TRACT Status: Acute Priority: High Current Visit: Yes - Patient Summary/Data Consults: Consultations 11/17/17 14:12 Consult to System Administrator [CONS] Routine Comment: Physician Instructions: Quantity: Consult to Home Health [CONS] Routine Comment: Physician Instructions: Consult to Infection Prevention [CONS] Routine Comment: Physician Instructions: OT Evaluation and Treatment [CONS] Routine Please Evaluate and Treat. OT Reason for Consult: ADL's This query below is only for informational purposes and is not editable. Admission Diagnosis/Problem: Weakness PT Evaluation and Treatment [CONS] Routine Please Evaluate and Treat. PT Reason for Consult: Strengthening This query below is only for informational purposes and is not editable. Admission Diagnosis/Problem: Weakness 11/17/17 14:21 PT Evaluation and Treatment [CONS] Routine Please Evaluate and Treat. PT Reason for Consult: Strengthening Special Instructions: Patient had diverticulitis with abscess of transverse colon, requiring sada-colectomy This query below is only for informational purposes and is not editable. Admission Diagnosis/Problem: Status post right hemicolectomy 11/17/17 14:22 OT Evaluation and Treatment [CONS] Routine Please Evaluate and Treat. OT Reason for Consult: Strengthening Special Instructions: Patient had diverticulitis with abscess of transverse colon, requiring sada-colectomy This query below is only for informational purposes and is not editable. Admission Diagnosis/Problem: Status post right hemicolectomy - Patient Instructions Diet: Usual Diet as Tolerated Activity: As Tolerated, No Strenuous Activities, Rest and Relax Today Driving: Do Not Drive - Discharge Plan Home Medications: Home Meds Amitriptyline [Elavil] 25 mg PO BEDTIME 09/22/14 [History] Hydrochlorothiazide 25 mg PO DAILY 09/22/14 [History] Diltiazem HCl [Diltiazem 24Hr ER] 180 mg PO DAILY 11/17/17 [History] Isosorbide Mononitrate [Imdur] 30 mg PO DAILY 11/17/17 [History] L. Acidophilus/Pectin, [place] [Acidophilus Probiotic] 1 tab PO TID 11/17/17 [ History] Lisinopril 2.5 mg PO DAILY 11/17/17 [History] Metoprolol Succinate [Toprol XL 50mg] 50 mg PO DAILY 11/17/17 [History] Multivitamin [Multi-Vitamin Daily] 1 tab PO DAILY 11/17/17 [History] Nitroglycerin [Nitrostat] 1 tab PO ASDIRECTED 11/17/17 [History] Psyllium [Metamucil] 2 cap PO BID 11/17/17 [History] Ranitidine HCl [Ranitidine] 150 mg PO DAILY 11/17/17 [History] Acidophilus/Lactobac Spor [Acidolphilus X-Strength] 1 tab PO DAILY@1200 tablet 11/29/17 [Rx] Clopidogrel [Plavix] 75 mg PO DAILY tablet 11/29/17 [Rx] Melatonin 3 mg PO BEDTIME tablet 11/29/17 [Rx] Rivaroxaban [Xarelto] 15 mg PO DAILY@1700 tablet 11/29/17 [Rx] atorvaSTATin [Lipitor] 20 mg PO DAILY tablet 11/29/17 [Rx] glipiZIDE [Glucotrol XL] 2.5 mg PO DAILY@1200 tab.er 11/29/17 [Rx] traMADol [Ultram] 50 mg PO QID tablet 11/29/17 [Rx] - Discharge Summary/Plan Comment Discharge Summary/Plan Comment: Patient discharged to home with assistance from and daughter. No strenuous activities. Patient to f/u outpatient in clinic and as needed if any further concerns. F/u with ortho as directed/scheduled in 2 days. - Patient Data Vitals - Most Recent: Last Vital Signs Temp 36.7 C 11/29/17 08:00 Pulse 95 11/29/17 08:14 Resp 16 11/29/17 08:00 BP 128/69 11/29/17 08:14 Pulse Ox 97 11/29/17 08:00 Weight - Most Recent: 50.893 kg Lab Results - Last 24 hrs: Laboratory Results - last 24 hr 11/29/17 11/29/17 Range/Units 06:33 10:34 POC Glucose 125 H 154 H (74-110) mg/dL Med Orders - Current: Current Medications Acetaminophen (Tylenol) 325 - 650 mg PO Q4H PRN PRN Reason: MILD PAIN 1-3 PAIN SCALE Al Hydroxide/Mg Hydroxide (Mag-Al Plus) 30 ml PO Q4H PRN PRN Reason: Indigestion Amitriptyline HCl (Elavil) 25 mg PO BEDTIME [facility] Last Admin: 11/28/17 19:05 Dose: 25 mg Atorvastatin Calcium (Lipitor) 20 mg PO DAILY [facility] Last Admin: 11/29/17 08:14 Dose: 20 mg Clopidogrel Bisulfate (Plavix) 75 mg PO DAILY [facility] Last Admin: 11/29/17 08:14 Dose: 75 mg Diltiazem HCl (Cardizem Cd) 180 mg PO DAILY [facility] Last Admin: 11/29/17 08:14 Dose: 180 mg Glipizide (Glucotrol Xl) 2.5 mg PO DAILY@1200 [facility] Last Admin: 11/29/17 11:56 Dose: 2.5 mg Hydrochlorothiazide (Hydrochlorothiazide) 25 mg PO DAILY [facility] Last Admin: 11/29/17 08:14 Dose: 25 mg Isosorbide Mononitrate (Imdur) 30 mg PO DAILY [facility] Last Admin: 11/29/17 08:13 Dose: 30 mg Lactobacillus Acidophilus (Acidolphilus Extra Strength) 1 tab PO DAILY@1200 [facility] Last Admin: 11/29/17 11:56 Dose: 1 tab Lisinopril (Prinivil) 2.5 mg PO DAILY [facility] Last Admin: 11/29/17 08:13 Dose: 2.5 mg Melatonin (Melatonin) 3 mg PO BEDTIME [facility] Last Admin: 11/28/17 19:05 Dose: 3 mg Metoprolol Succinate (Toprol Xl) 50 mg PO DAILY [facility] Last Admin: 11/29/17 08:14 Dose: 50 mg Multivitamins/Minerals (Thera M Plus) 1 tab PO DAILY [facility] Last Admin: 11/29/17 08:15 Dose: 1 tab Nitroglycerin (Nitrostat) 0.4 mg SL ASDIRECTED PRN PRN Reason: CHEST PAIN Ondansetron HCl (Zofran Odt) 4 mg PO Q6H PRN PRN Reason: Nausea Ranitidine HCl (Zantac) 150 mg PO BEDTIME [facility] Last Admin: 11/28/17 19:05 Dose: 150 mg Rivaroxaban (Xarelto) 15 mg PO DAILY@1700 [facility] Last Admin: 11/28/17 16:39 Dose: 15 mg Tramadol HCl (Ultram) 50 mg PO QID [facility] Last Admin: 11/29/17 11:56 Dose: 50 mg Discontinued Medications Acetaminophen (Tylenol) 325 mg PO ASDIRECTED PRN PRN Reason: pain Glipizide (Glucotrol Xl) 2.5 mg PO ASDIRECTED [facility] Stop: 11/25/17 17:00 Last Admin: 11/25/17 12:12 Dose: 2.5 mg Lactobacillus Acidophilus (Acidolphilus Extra Strength) 1 tab PO DAILY [facility] Last Admin: 11/18/17 07:36 Dose: 1 tab Lactobacillus Acidophilus (Acidolphilus Extra Strength) Confirm Administered Dose 1 tab .ROUTE .STK-MED ONE Stop: 11/17/17 17:40 Last Admin: 11/17/17 17:30 Dose: 1 tab Lactobacillus Acidophilus (Acidolphilus Extra Strength) Confirm Administered Dose 1 tab .ROUTE .STK-MED ONE Stop: 11/18/17 07:48 Last Admin: 11/18/17 09:39 Dose: Not Given Levofloxacin (Levaquin) 500 mg PO DAILY [facility] Stop: 11/25/17 08:01 Last Admin: 11/25/17 08:02 Dose: 500 mg Metronidazole (Flagyl) 500 mg PO TID [facility] Stop: 11/25/17 08:01 Last Admin: 11/25/17 08:00 Dose: 500 mg Tuberculin PPD (Aplisol) 5 unit IDERM ONETIME ONE Stop: 11/17/17 14:24 Last Admin: 11/17/17 17:20 Dose: 5 unit Tuberculin PPD (Aplisol) 5 unit IDERM ONETIME ONE Stop: 11/17/17 14:13 Last Admin: 11/17/17 17:22 Dose: Not Given
== END 2017-11-29 14:32 | disposition home or self-care (01) | DRG 948 ==
LOC: UNDOADMIN 13:15 → LB.MS 13:15
PROVIDERS: ADMIT Family Medicine; ATTEND Family Medicine
DX: R53.1 Weakness (principal); Z98.890 Other specified postprocedural states; Z66 Do not resuscitate; I10 Essential (primary) hypertension; I25.10 Atherosclerotic heart disease of native coronary artery without angina pectoris; I48.91 Unspecified atrial fibrillation; Z79.01 Long term (current) use of anticoagulants; I25.2 Old myocardial infarction; Z90.49 Acquired absence of other specified parts of digestive tract; Z85.038 Personal history of other malignant neoplasm of large intestine; Z11.1 Encounter for screening for respiratory tuberculosis; F32.9 Major depressive disorder, single episode, unspecified; M79.7 Fibromyalgia; M54.9 Dorsalgia, unspecified; G89.29 Other chronic pain; Z87.440 Personal history of urinary (tract) infections; H35.30 Unspecified macular degeneration; H54.7 Unspecified visual loss
CPT/HCPCS: 36415; 51798; 80048; 80053; 81003; 82962; 83036; 85025; 86580; 97110-GO; 97110-GP; 97116-GP; 97161-GP; 97165-GO; 97530-GO; 97530-GP; 97535-GO; A9270-GY

== ENCOUNTER 2018-08-18 11:47 | Emergency (ER) | payer MEDICARE, BC ==
--- NOTE | 2018-08-18 18:36 | EDM.PDOC ---
ED HPI GENERAL MEDICAL PROBLEM - General Time Seen by Provider: 08/18/18 11:55 Source of Information: Reports: Patient, Family History Limitations: Reports: No Limitations - History of Present Illness INITIAL COMMENTS - FREE TEXT/NARRATIVE: This is a pleasant 83yo F who was gardening and felt lightheaded and fell over in the grass and bumped her glasses which caused a bruising of the left orbit. Patient landed on the grass and has no other complaints or injuries. Patient is on eliquis. Onset: Sudden Location: Reports: Face Severity: Mild Improves with: Reports: None Worsens with: Reports: None - Related Data Allergies Allergy/AdvReac Type Severity Reaction Status Date / Time No Known Allergies Allergy Verified 12/12/17 20:38 Home Meds: Home Meds Amitriptyline [Elavil] 25 mg PO BEDTIME 09/22/14 [History] Hydrochlorothiazide 25 mg PO DAILY 09/22/14 [History] Isosorbide Mononitrate [Imdur] 30 mg PO DAILY 11/17/17 [History] Lisinopril 2.5 mg PO DAILY 11/17/17 [History] Metoprolol Succinate [Toprol XL 50mg] 50 mg PO DAILY 11/17/17 [History] Nitroglycerin [Nitrostat] 1 tab PO ASDIRECTED 11/17/17 [History] Ranitidine HCl [Ranitidine] 150 mg PO DAILY 11/17/17 [History] Clopidogrel [Plavix] 75 mg PO DAILY tablet 11/29/17 [Rx] Melatonin 3 mg PO BEDTIME tablet 11/29/17 [Rx] atorvaSTATin [Lipitor] 20 mg PO DAILY tablet 11/29/17 [Rx] glipiZIDE [Glucotrol XL] 2.5 mg PO DAILY@1200 tab.er 11/29/17 [Rx] traMADol [Ultram] 50 mg PO QID PRN 12/12/17 [History] Past Medical History HEENT History: Reports: Cataract, Impaired Vision, Macular Degeneration Cardiovascular History: Reports: Afib, Arrhythmia, CAD, Hypertension, CA, Other (See Below) Other Cardiovascular History: A-fib. 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: , Prolapsed Uterus Musculoskeletal History: Reports: Back Pain, Chronic, Fibromyalgia Psychiatric History: Reports: Depression Endocrine/Metabolic History: Reports: Hyperthyroidism Oncologic (Cancer) History: Reports: Colon - Infectious Disease History Infectious Disease History: Reports: Chicken Pox, Measles, Mumps - Past Surgical History HEENT Surgical History: Reports: Cataract Surgery GI Surgical History: Reports: Colon Other GI Surgeries/Procedures: Laporascopic Transvers colectomy 11/10/17 Female Surgical History: Reports: Other (See Below) Other Female Surgeries/Procedures: surgical intervention for prolapsed uterus Endocrine Surgical History: Reports: None Musculoskeletal Surgical History: Reports: None Oncologic Surgical History: Reports: Other (See Below) Other Oncologic Surgeries/Procedures: Malignant tumor removed with transvers colectomy on 11/10/17 Social & Family History - Family History Family Medical History: Noncontributory - Caffeine Use Caffeine Use: Reports: Coffee Caffeine Use Comment: 2 cups a day ED ROS GENERAL - Review of Systems Review Of Systems: ROS reveals no pertinent complaints other than HPI. 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 - Problem List & Annotations (1) Bruise of face SNOMED Code(s): 980824785 Code(s): S00.83XA - CONTUSION OF OTHER PART OF HEAD, INITIAL ENCOUNTER Status: Acute Priority: High Qualifiers: Encounter type: initial encounter Qualified Code(s): S00.83XA - Contusion of other part of head, initial encounter (2) Hematoma SNOMED Code(s): 531902200 Code(s): T14.8XXA - OTHER INJURY OF UNSPECIFIED BODY REGION, INITIAL ENCOUNTER Status: Acute Priority: High - Problem List Review Problem List Initiated/Reviewed/Updated: Yes - Assessment/Plan Plan: Counseled on care of face and bruising. Discussed hematoma and continued icing and monitoring for continued bleeding. Discussed continued Eliquis and return to ER for persistent symptoms or worsening or concerns. F/u in clinic as routine.
== END 2018-08-18 12:16 | disposition home or self-care (01) ==
LOC: LB.ED 11:47
DX: S00.83XA Contusion of other part of head, initial encounter (principal); I48.91 Unspecified atrial fibrillation; I25.10 Atherosclerotic heart disease of native coronary artery without angina pectoris; I10 Essential (primary) hypertension; I25.2 Old myocardial infarction; Z79.01 Long term (current) use of anticoagulants; Z79.84 Long term (current) use of oral hypoglycemic drugs; W18.39XA Other fall on same level, initial encounter; Z79.899 Other long term (current) drug therapy
CPT/HCPCS: 99283

== ENCOUNTER 2019-10-25 06:28 | Emergency (ER) | payer MEDICARE, BC ==
[2019-10-25 07:25] VITALS: BP 158/90; PULSE 81
[2019-10-25] MEDS: traMADol 50 MG Tab PO ONE (07:48)
[2019-10-25] MEDS ORDERED: traMADol 50 MG Tab ONE (07:55)
--- NOTE | 2019-10-25 08:53 | EDM.PDOC ---
ED HPI GENERAL MEDICAL PROBLEM - General Chief Complaint: Trauma Stated Complaint: fell, edema to LE and head on coumidin Time Seen by Provider: 10/25/19 07:40 Source of Information: Reports: Patient, Family History Limitations: Reports: No Limitations - History of Present Illness INITIAL COMMENTS - FREE TEXT/NARRATIVE: Patient is and 84 yo white female who has history of Atrial Fibrillation and is on Eliquis presents after falling while getting mild out of refrigerator this morning at home when she turned and lost her balance. Daughter concerned about possible bleeding within skull due to trauma. Patient denies neck pain. complains of pain and swelling of left hand, wrist and right ankle. Able to walk with minimal limp. Onset: Today, Sudden Onset Date: 10/25/19 Onset Time: 06:30 Location: Reports: Head, Upper Extremity, Left, Lower Extremity, Right Quality: Reports: Dull Severity: Mild Generalized Pain Score (Numeric/FACES): 4 - Related Data Allergies Allergy/AdvReac Type Severity Reaction Status Date / Time No Known Allergies Allergy Verified 10/25/19 07:06 Home Meds: Home Meds Amitriptyline [Elavil] 25 mg PO BEDTIME 09/22/14 [History] Hydrochlorothiazide 25 mg PO DAILY 09/22/14 [History] Isosorbide Mononitrate [Imdur] 30 mg PO DAILY 11/17/17 [History] Lisinopril 2.5 mg PO DAILY 11/17/17 [History] Metoprolol Succinate [Toprol XL 50mg] 50 mg PO DAILY 11/17/17 [History] Nitroglycerin [Nitrostat] 1 tab PO ASDIRECTED 11/17/17 [History] Melatonin 3 mg PO BEDTIME tablet 11/29/17 [Rx] atorvaSTATin [Lipitor] 20 mg PO DAILY tablet 11/29/17 [Rx] glipiZIDE [Glucotrol XL] 2.5 mg PO DAILY@1200 tab.er 11/29/17 [Rx] ALPRAZolam [Alprazolam] 0.25 mg PO BID PRN 10/25/19 [History] Acetaminophen 1 - 2 tab PO Q6H PRN 10/25/19 [History] Apixaban [Eliquis] 1 tab PO BID 10/25/19 [History] Aspirin 81 mg PO DAILY 10/25/19 [History] Multivitamin 1 each PO DAILY 10/25/19 [History] Vitc/E/Zinc/Copper/Lutein/Zeax [Icaps Areds2 Tablet] 1 each PO DAILY 10/25/19 [History] dilTIAZem HCL [Diltiazem 24Hr ER (Cd)] 180 mg PO DAILY 10/25/19 [History] traMADol HCl [Tramadol HCl] 1 tab PO DAILY PRN 10/25/19 [History] Past Medical History HEENT History: Reports: Cataract, Impaired Vision, Macular Degeneration Cardiovascular History: Reports: Afib, Arrhythmia, CAD, Hypertension, ID, Other (See Below) Other Cardiovascular History: A-fib. 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 Musculoskeletal History: Reports: Back Pain, Chronic, Fibromyalgia Psychiatric History: Reports: Anxiety, Depression Endocrine/Metabolic History: Reports: Hyperthyroidism Hematologic History: Reports: Anticoagulation Therapy, Blood Transfusion(s) Oncologic (Cancer) History: Reports: Colon - Infectious Disease History Infectious Disease History: Reports: Chicken Pox, Measles, Mumps - Past Surgical History HEENT Surgical History: Reports: Cataract Surgery GI Surgical History: Reports: Colon Other GI Surgeries/Procedures: Laporascopic Transvers colectomy 11/10/17 Female Surgical History: Reports: Other (See Below) Other Female Surgeries/Procedures: surgical intervention for prolapsed uterus Endocrine Surgical History: Reports: None Musculoskeletal Surgical History: Reports: None Oncologic Surgical History: Reports: Other (See Below) Other Oncologic Surgeries/Procedures: Malignant tumor removed with transvers colectomy on 11/10/17 Social & Family History - Family History Family Medical History: Noncontributory - Tobacco Use Smoking Status *Q: Never Smoker Second Hand Smoke Exposure: No - Caffeine Use Caffeine Use: Reports: Coffee Caffeine Use Comment: 2 cups a day - Recreational Drug Use Recreational Drug Use: No Review of Systems - Review of Systems Review Of Systems: See Below Constitutional: Reports: No Symptoms Ears: Reports: No Symptoms Nose: Reports: No Symptoms Mouth/Throat: Reports: No Symptoms Respiratory: Reports: No Symptoms Cardiovascular: Reports: No Symptoms GI/Abdominal: Reports: No Symptoms Genitourinary: Reports: No Symptoms Musculoskeletal: Reports: Hand Pain, Other (Right ankle pain) Skin: Reports: Other (Swelling and ecchymosis of left hand and right ankle) ED EXAM, GENERAL - Physical Exam Exam: See Below Exam Limited By: No Limitations General Appearance: Alert, WD/WN, No Apparent Distress Eye Exam: Bilateral Eye: Normal Inspection, PERRL Ears: Normal External Exam Nose: Normal Inspection, Normal Mucosa, No Blood Throat/Mouth: Normal Inspection, Normal Lips Head: Other (Mil) Neck: Normal Inspection, Supple, Non-Tender, Full Range of Motion Respiratory/Chest: No Respiratory Distress, Lungs Clear, Normal Breath Sounds, No Accessory Muscle Use, Chest Non-Tender Cardiovascular: Regular Rate, Rhythm, No JVD, No Murmur GI/Abdominal: Soft, Non-Tender, No Distention Back Exam: Normal Inspection Extremities: Other ( area of ecchymosis of dorsum of left hand and mild swelling over medial aspect of right ankle with NROM of ankle . Able to amublate with minimal limp) Neurological: Alert, Oriented, CN II-XII Intact, Normal Cognition Psychiatric: Normal Affect, Normal Mood Skin Exam: Warm, Dry, Ecchymosis (as per extemeties) Course - Vital Signs Text/Narrative:: CT of head and neck negative for fx or intracranial bleeding .Goiter of thyroid present. See reports. Patient to follow up in clinic to review CT findings and discuss need for further work up of enlarged thyroid. X ray of hand and wrist and ankle . Negative for fractures -See reports Last Recorded V/S: Last Vital Signs Temp 98.1 F 10/25/19 06:50 Pulse 81 10/25/19 06:50 Resp 20 10/25/19 06:50 BP 158/90 H 10/25/19 06:50 Pulse Ox 96 10/25/19 06:50 - Orders/Labs/Meds Meds: Medications Discontinued Medications Generic Name Dose Route Start Last Admin Trade Name Joel PRN Reason Stop Dose Admin Tramadol HCl 50 mg 10/25/19 07:44 10/25/19 07:48 Ultram PO 10/25/19 07:45 50 mg ONETIME ONE Administration Tramadol HCl Confirm 10/25/19 07:55 Ultram Administered 10/25/19 07:56 Dose 50 mg .ROUTE .STK-MED ONE Departure - Departure Time of Disposition: 08:46 Disposition: Home, Self-Care 01 Clinical Impression: Contusion of left hand, initial encounter Contusion of head Qualifiers: Encounter type: initial encounter Contusion of head detail: scalp Qualified Code(s): S00.03XA - Contusion of scalp, initial encounter Traumatic hematoma of left hand Qualifiers: Encounter type: initial encounter Qualified Code(s): S60.222A - Contusion of left hand, initial encounter Contusion of ankle, right Qualifiers: Encounter type: initial encounter Qualified Code(s): S90.01XA - Contusion of right ankle, initial encounter - Discharge Information *PRESCRIPTION DRUG MONITORING PROGRAM REVIEWED*: No *COPY OF PRESCRIPTION DRUG MONITORING REPORT IN PATIENT ZACH: No Instructions: RICE Therapy for Routine Care of Injuries, [id number], Contusion, [id number], Hand Contusion Referrals: PCP,None [Primary Care Provider] - Forms: ED Department Discharge Additional Instructions: Use sling and ice to affected areas as needed. Continue activity as tolerated. Take Tramadol as prescribed and Tylenol as needed. Follow up with your regular provider regarding enlarged thyroid. Return for increasing headache , increasing nausea or vomiting or other worsening Sepsis Event Note (ED) - Evaluation Sepsis Screening Result: No Definite Risk
--- NOTE | 2019-10-25 11:13 | CR ---
Date of Service: 10/25/19 Clinical Data: fall in home, large hematoma, pain LEFT WRIST: There is soft tissue swelling over the dorsum of the hand. There are osteoarthritic changes involving multiple joints. No acute fracture or dislocation. [id number] [facility]
--- NOTE | 2019-10-25 11:16 | CR ---
Date of Service: 10/25/19 Clinical Data: fall at home, pain with ambulation, hematoma RIGHT ANKLE: No priors. No acute fracture or dislocation. No lytic or blastic bone lesions. There are osteoarthritic changes involving multiple joints. There is a plantar calcaneal spur. There are vascular calcifications in the soft tissues [id number] [facility]
--- NOTE | 2019-10-25 11:20 | CT ---
Date of Service: 10/25/19 Clinical Data: fall, struck head UNENHANCED BRAIN CT: Multislice acquisition through the brain without IV contrast was performed. No priors. There is diffuse cerebral atrophy. There are periventricular lucencies bilaterally consistent with small vessel ischemic change. No masses or mass effect. No intracranial hemorrhage. No evidence of acute or subacute infarct. No osseous abnormalities. IMPRESSION: No acute intracranial abnormalities. [id number] [facility]
--- NOTE | 2019-10-25 11:25 | CT ---
Date of Service: 10/25/19 Clinical Data: fall, struck head CERVICAL SPINE CT: Multislice axial acquisition was performed. Axial images and sagittal and coronal reformations are reviewed. No acute fracture or dislocation. No lytic or blastic bone lesions. There is degenerative disk disease at multiple levels. There is mild anterolisthesis of C5 on C5, C7 on T1 and T1 on T2. There is facet joint hypertrophy throughout the cervical spine. The soft tissues are unremarkable. The visualized lung apices clear. There is prominence of the vertebral canals at the C4 and C5 level. This is nonspecific. [id number] [facility]
== END 2019-10-25 08:45 | disposition home or self-care (01) ==
LOC: LB.ED 06:28
DX: S00.03XA Contusion of scalp, initial encounter (principal); S90.01XA Contusion of right ankle, initial encounter; S60.222A Contusion of left hand, initial encounter; I10 Essential (primary) hypertension; I25.10 Atherosclerotic heart disease of native coronary artery without angina pectoris; I48.91 Unspecified atrial fibrillation; I25.2 Old myocardial infarction; F41.9 Anxiety disorder, unspecified; F32.9 Major depressive disorder, single episode, unspecified; Z79.01 Long term (current) use of anticoagulants; Z79.899 Other long term (current) drug therapy; Z79.82 Long term (current) use of aspirin; W18.30XA Fall on same level, unspecified, initial encounter; Y92.009 Unspecified place in unspecified non-institutional (private) residence as the place of occurrence of the external cause
CPT/HCPCS: 70450; 72125; 73110-LT; 73610-RT; 99284-25; A9270-GY

== ENCOUNTER 2020-08-17 09:06 | Emergency (ER) | payer MEDICARE, BC ==
[2020-08-17] MEDS ORDERED: Sodium Chloride 0.9% 10 ML Syringe FLUSH PRN (09:43)
--- NOTE | 2020-08-17 09:51 | EDM.PDOC ---
ED HPI GENERAL MEDICAL PROBLEM - General Stated Complaint: BLOODY STOOLS Time Seen by Provider: 08/17/20 09:35 Source of Information: Reports: Patient, Family History Limitations: Reports: No Limitations - History of Present Illness INITIAL COMMENTS - FREE TEXT/NARRATIVE: 85 year old female with PMH afib, HTN, colon CA (2018 surgery), presents to ED with rectal bleeding. She is on elliquis BID. She has had several episodes this AM of bright red blood per rectum. Denies any CP, SOB, abdominal pain, CP, fever, cough, MOCTEZUMA, weakness. She has had intermittent right flank pain, no CVA tenderness. - Related Data Allergies Allergy/AdvReac Type Severity Reaction Status Date / Time No Known Allergies Allergy Verified 10/25/19 07:06 Home Meds: Home Meds Amitriptyline [Elavil] 25 mg PO BEDTIME 09/22/14 [History] Hydrochlorothiazide 25 mg PO DAILY 09/22/14 [History] Isosorbide Mononitrate [Imdur] 30 mg PO DAILY 11/17/17 [History] Lisinopril 2.5 mg PO DAILY 11/17/17 [History] Metoprolol Succinate [Toprol XL 50mg] 50 mg PO DAILY 11/17/17 [History] Nitroglycerin [Nitrostat] 1 tab PO ASDIRECTED 11/17/17 [History] Melatonin 3 mg PO BEDTIME tablet 11/29/17 [Rx] atorvaSTATin [Lipitor] 20 mg PO DAILY tablet 11/29/17 [Rx] glipiZIDE [Glucotrol XL] 2.5 mg PO DAILY@1200 tab.er 11/29/17 [Rx] ALPRAZolam [Alprazolam] 0.25 mg PO BID PRN 10/25/19 [History] Acetaminophen 1 - 2 tab PO Q6H PRN 10/25/19 [History] Apixaban [Eliquis] 1 tab PO BID 10/25/19 [History] Aspirin 81 mg PO DAILY 10/25/19 [History] Multivitamin 1 each PO DAILY 10/25/19 [History] Vitc/E/Zinc/Copper/Lutein/Zeax [Icaps Areds2 Tablet] 1 each PO DAILY 10/25/19 [History] dilTIAZem HCL [Diltiazem 24Hr ER (Cd)] 180 mg PO DAILY 10/25/19 [History] traMADol HCl [Tramadol HCl] 1 tab PO DAILY PRN 10/25/19 [History] Past Medical History HEENT History: Reports: Cataract, Impaired Vision, Macular Degeneration Cardiovascular History: Reports: Afib, Arrhythmia, CAD, Hypertension, [place], Other (See Below) Other Cardiovascular History: A-fib. 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 Genitourinary History: Pessary [employer] History: Reports: , Prolapsed Uterus Musculoskeletal History: Reports: Back Pain, Chronic, Fibromyalgia Psychiatric History: Reports: Anxiety, Depression Endocrine/Metabolic History: Reports: Hyperthyroidism Hematologic History: Reports: Anticoagulation Therapy, Blood Transfusion(s) Oncologic (Cancer) History: Reports: Colon - Infectious Disease History Infectious Disease History: Reports: Chicken Pox, Measles, Mumps - Past Surgical History HEENT Surgical History: Reports: Cataract Surgery GI Surgical History: Reports: Colon Other GI Surgeries/Procedures: Laporascopic Transvers colectomy 11/10/17 Female Surgical History: Reports: Other (See Below) Other Female Surgeries/Procedures: surgical intervention for prolapsed uterus Endocrine Surgical History: Reports: None Musculoskeletal Surgical History: Reports: None Oncologic Surgical History: Reports: Other (See Below) Other Oncologic Surgeries/Procedures: Malignant tumor removed with transvers colectomy on 11/10/17 Social & Family History - Family History Family Medical History: No Pertinent Family History - Caffeine Use Caffeine Use: Reports: Coffee Caffeine Use Comment: 2 cups a day ED ROS GENERAL - Review of Systems Review Of Systems: See Below Constitutional: Reports: No Symptoms HEENT: Reports: No Symptoms Respiratory: Reports: No Symptoms Cardiovascular: Reports: No Symptoms Endocrine: Reports: No Symptoms GI/Abdominal: Reports: Bloody Stool : Reports: Frequency Musculoskeletal: Reports: No Symptoms Skin: Reports: No Symptoms Neurological: Reports: No Symptoms Psychiatric: Reports: No Symptoms Hematologic/Lymphatic: Reports: Easy Bleeding, Other (elliquis) ED EXAM, GI/ABD - Physical Exam Exam: See Below Exam Limited By: No Limitations General Appearance: Alert, No Apparent Distress Eyes: Bilateral: Normal Appearance Ears: Normal External Exam, Hearing Grossly Normal Nose: Normal Inspection, No Blood Throat/Mouth: Normal Inspection, Normal Lips, Normal Voice, No Airway Compromise Head: Atraumatic Neck: Normal Inspection, Non-Tender, Full Range of Motion Respiratory/Chest: No Respiratory Distress, Lungs Clear, Normal Breath Sounds, No Accessory Muscle Use Cardiovascular: Normal Peripheral Pulses, No Edema, No JVD, No Murmur, Irregularly Irregular GI/Abdominal Exam: Normal Bowel Sounds, Soft, Non-Tender Rectal (Female) Exam: Normal Exam, Normal Rectal Tone, Bloody Stool, Tenderness Back Exam: Normal Inspection, Full Range of Motion. No: CVA Tenderness (R), CVA Tenderness (L) Extremities: Normal Inspection, Normal Range of Motion, Non-Tender, No Pedal Edema, Normal Capillary Refill Neurological: Alert, Oriented, Normal Cognition, Normal Gait, No Motor/Sensory Deficits Psychiatric: Normal Affect, Normal Mood Skin Exam: Warm, Dry, Intact, Normal Color, No Rash Lymphatic: No Adenopathy Course - Vital Signs Last Recorded V/S: Last Vital Signs Temp 98.0 F 08/17/20 10:06 Pulse 110 H 08/17/20 11:57 Resp 16 08/17/20 11:57 BP 140/80 08/17/20 11:57 Pulse Ox 99 08/17/20 11:57 - Orders/Labs/Meds Orders: Active Orders 24 hr Category Date Time Status EKG Documentation Completion [RC] ASDIRECTED Care 08/17/20 09:43 Active Abdomen Pelvis wo Cont [CT] Stat Exams 08/17/20 10:35 Taken Sodium Chloride 0.9% [Saline Flush] Med 08/17/20 09:43 Active 10 ml FLUSH ASDIRECTED PRN Peripheral IV Insertion Adult [OM.PC] Routine Oth 08/17/20 09:43 Ordered EKG 12 Lead [EK] Routine Ther 08/17/20 09:42 Ordered Medication Orders Sodium Chloride (Sodium Chloride 0.9% 10 Ml Syringe) 10 ml FLUSH ASDIRECTED PRN PRN Reason: Keep Vein Open Labs: Laboratory Tests 08/17/20 08/17/20 08/17/20 Range/Units 09:50 09:50 09:50 WBC 4.6 (4.0-11.0) K/uL RBC 4.54 (3.80-5.80) M/uL Hgb 13.6 (11.5-16.5) g/dL Hct 40.5 (37.0-47.0) % MCV 89 (76-96) fL MCH 30.0 (27.0-32.0) pg MCHC 33.6 (31.0-35.0) g/dL RDW 12.6 (11.0-16.0) % Plt Count 164 (150-500) K/uL MPV 9.8 (6.0-10.0) fL Neut % (Auto) 67.2 (45.0-70.0) % Lymph % (Auto) 24.8 (20.0-40.0) % [place] % (Auto) 6.1 (3.0-10.0) % Eos % (Auto) 1.5 (1.0-5.0) % Baso % (Auto) 0.4 (0.0-0.5) % Neut # (Auto) 3.08 (2.00-7.50) K/uL Lymph # (Auto) 1.14 L (1.50-4.00) K/uL [place] # (Auto) 0.28 (0.20-0.80) K/uL Eos # (Auto) 0.07 (0.04-0.40) K/uL Baso # (Auto) 0.02 (0.02-0.10) K/uL PT (9.0-11.5) sec INR (1.0-3.5) APTT (24.4-33.2) SECONDS Sodium 138 (136-145) mmol/L Potassium 3.5 D (3.5-5.1) mmol/L Chloride 103 (98-107) mmol/L Carbon Dioxide 28.2 (21.0-32.0) mmol/L Anion Gap 10.3 (5.0-15.0) mmol/L BUN 22 (8-26) mg/dL Creatinine 1.06 H (0.55-1.02) mg/dL Est Cr Clr Drug Dosing TNP Estimated GFR (MDRD) 49 L (>60) MLS/MIN BUN/Creatinine Ratio 20.8 (6-25) Glucose 229 H D (74-100) mg/dL Calcium 8.5 (8.5-10.1) mg/dL Total Bilirubin 0.5 (0.0-1.0) mg/dL AST 21 (15-37) U/L ALT 22 (12-78) U/L Alkaline Phosphatase 89 (46-116) U/L Total Protein 7.0 (6.4-8.2) g/dL Albumin 3.3 L (3.4-5.0) g/dL Globulin 3.7 (2.2-4.2) g/dL Albumin/Globulin Ratio 0.9 (0.8-2.0) Urine Color Urine Appearance (CLEAR) Urine pH (5.0-8.0) Ur Specific [place] (1.003-1.030) Urine Protein (NEGATIVE) mg/dL Urine Glucose (UA) (NEGATIVE) mg/dL Urine Ketones (NEGATIVE) mg/dL Urine Occult Blood (NEGATIVE) Urine Nitrite (NEGATIVE) Urine Bilirubin (NEGATIVE) Urine Urobilinogen (0.2-1.0) E.U./dL Ur Leukocyte Esterase (NEGATIVE) Urine RBC /HPF Urine WBC /HPF SARS-CoV-2 RNA (MIKI) (NEGATIVE) Blood Type A POSITIVE Gel Antibody Screen Negative 08/17/20 08/17/20 08/17/20 Range/Units 09:50 10:15 11:12 WBC (4.0-11.0) K/uL RBC (3.80-5.80) M/uL Hgb (11.5-16.5) g/dL Hct (37.0-47.0) % MCV (76-96) fL MCH (27.0-32.0) pg MCHC (31.0-35.0) g/dL RDW (11.0-16.0) % Plt Count (150-500) K/uL MPV (6.0-10.0) fL Neut % (Auto) (45.0-70.0) % Lymph % (Auto) (20.0-40.0) % [place] % (Auto) (3.0-10.0) % Eos % (Auto) (1.0-5.0) % Baso % (Auto) (0.0-0.5) % Neut # (Auto) (2.00-7.50) K/uL Lymph # (Auto) (1.50-4.00) K/uL [place] # (Auto) (0.20-0.80) K/uL Eos # (Auto) (0.04-0.40) K/uL Baso # (Auto) (0.02-0.10) K/uL PT 10.5 (9.0-11.5) sec INR 1.0 (1.0-3.5) APTT 25.5 (24.4-33.2) SECONDS Sodium (136-145) mmol/L Potassium (3.5-5.1) mmol/L Chloride (98-107) mmol/L Carbon Dioxide (21.0-32.0) mmol/L Anion Gap (5.0-15.0) mmol/L BUN (8-26) mg/dL Creatinine (0.55-1.02) mg/dL Est Cr Clr Drug Dosing Estimated GFR (MDRD) (>60) MLS/MIN BUN/Creatinine Ratio (6-25) Glucose (74-100) mg/dL Calcium (8.5-10.1) mg/dL Total Bilirubin (0.0-1.0) mg/dL AST (15-37) U/L ALT (12-78) U/L Alkaline Phosphatase (46-116) U/L Total Protein (6.4-8.2) g/dL Albumin (3.4-5.0) g/dL Globulin (2.2-4.2) g/dL Albumin/Globulin Ratio (0.8-2.0) Urine Color Yellow Urine Appearance Clear (CLEAR) Urine pH 6.0 (5.0-8.0) Ur Specific [place] 1.020 (1.003-1.030) Urine Protein 100 H (NEGATIVE) mg/dL Urine Glucose (UA) 100 H (NEGATIVE) mg/dL Urine Ketones Negative (NEGATIVE) mg/dL Urine Occult Blood Trace-intact H (NEGATIVE) Urine Nitrite Negative (NEGATIVE) Urine Bilirubin Negative (NEGATIVE) Urine Urobilinogen 0.2 (0.2-1.0) E.U./dL Ur Leukocyte Esterase Negative (NEGATIVE) Urine RBC 0-5 H /HPF Urine WBC 0-5 H /HPF SARS-CoV-2 RNA (MIKI) Negative (NEGATIVE) Blood Type Gel Antibody Screen Meds: Medications Generic Name Dose Route Start Last Admin Trade Name Freq PRN Reason Stop Dose Admin Sodium Chloride 10 ml 08/17/20 09:43 Sodium Chloride 0.9% 10 Ml Syringe FLUSH ASDIRECTED PRN Keep Vein Open Discontinued Medications Generic Name Dose Route Start Last Admin Trade Name Joel PRN Reason Stop Dose Admin Sodium Chloride 500 mls @ 500 mls/min 08/17/20 09:46 08/17/20 10:16 Normal Saline IV 08/17/20 09:47 500 mls/min .BOLUS ONE Administration Departure - Departure Time of Disposition: 12:40 Disposition: DC/Tfer to Acute Hospital 02 Condition: Good Clinical Impression: Acute lower GI bleeding, Blood thinned due to long-term anticoagulant use - Discharge Information *PRESCRIPTION DRUG MONITORING PROGRAM REVIEWED*: Not Applicable *COPY OF PRESCRIPTION DRUG MONITORING REPORT IN PATIENT ZACH: Not Applicable Referrals: PCP,None [Primary Care Provider] - Sepsis Event Note (ED) - Focused Exam Vital Signs: Vital Signs Temp Pulse Resp BP Pulse Ox 08/17/20 11:57 110 H 16 140/80 99 08/17/20 10:06 98.0 F 115 H 16 154/99 H 100 - Problem List Review Problem List Initiated/Reviewed/Updated: Yes - My Orders Last 24 Hours: My Active Orders 08/17/20 09:42 EKG 12 Lead [EK] Routine 08/17/20 09:43 EKG Documentation Completion [RC] ASDIRECTED Sodium Chloride 0.9% [Saline Flush] 10 ml FLUSH ASDIRECTED PRN Peripheral IV Insertion Adult [OM.PC] Routine 08/17/20 10:35 Abdomen Pelvis wo Cont [CT] Stat - Assessment/Plan Last 24 Hours: My Active Orders 08/17/20 09:42 EKG 12 Lead [EK] Routine 08/17/20 09:43 EKG Documentation Completion [RC] ASDIRECTED Sodium Chloride 0.9% [Saline Flush] 10 ml FLUSH ASDIRECTED PRN Peripheral IV Insertion Adult [OM.PC] Routine 08/17/20 10:35 Abdomen Pelvis wo Cont [CT] Stat Plan: Probably transfer to [place] for GI. Patient aware, waiting for labs and CT results. [id number] Junior in [place], he will accept patient for further treatment and monitoring. Patient and daughter aware and approve of transfer. Helicopter called for transport. Patient continues to deny pain. CT scan pushed to [place].
[2020-08-17] MEDS: Sodium Chloride 0.9% 500 ML IV ONE (10:16)
[2020-08-17 11:58] VITALS: BP 140/80; PULSE 110
--- NOTE | 2020-08-19 07:22 | CT ---
DATE OF SERVICE: 08/17/20 CLINICAL DATA: Question GI bleed, bleeding from rectum. UNENHANCED ABDOMEN AND PELVIC CT: Multislice acquisition through the abdomen and pelvis without IV or oral contrast was performed. No priors. The lung bases are clear. The heart size is normal. There are coronary artery calcifications. The liver is normal size with homogeneous attenuation. There are multiple calcified gallstones within the gallbladder. No pericholecystic fluid. The spleen appears normal. The pancreas is atrophic, otherwise unremarkable. There are small nonobstructing renal calculi bilaterally. There is a 5.7 cm low density lesion in the lower pole of the left kidney consistent with a cyst. There is a small amount of cyst wall calcification. It has increased in size from a prior chest CT. Ultrasound is recommended to further evaluate it. There is a low density lesion in the upper pole of the left kidney, most likely representing a cyst. The right and left kidneys are otherwise unremarkable. No hydronephrosis or hydroureter. There is a Hutchison catheter within the bladder. The bladder is decompressed. It appears grossly normal. The uterus is enlarged. There are numerous calcifications within it, consistent with calcified uterine leiomyoma. There is severe diverticulosis of the descending and sigmoid colon. No evidence of diverticulitis. No evidence of appendicitis. No free air. No free fluid. No dilated loops of bowel. No adenopathy. There is degenerative disc disease throughout the lower thoracic and lumbar spine. IMPRESSION: Multiple findings as discussed above. See above recommendation. [id number] MTDD
== END 2020-08-17 12:35 ==
LOC: LB.ED 09:06
DX: K92.2 Gastrointestinal hemorrhage, unspecified (principal); I48.91 Unspecified atrial fibrillation; I25.10 Atherosclerotic heart disease of native coronary artery without angina pectoris; I10 Essential (primary) hypertension; I25.2 Old myocardial infarction; Z79.82 Long term (current) use of aspirin; Z79.84 Long term (current) use of oral hypoglycemic drugs; Z79.01 Long term (current) use of anticoagulants; Z20.822 Contact with and (suspected) exposure to COVID-19; Z79.899 Other long term (current) drug therapy
CPT/HCPCS: 36415; 74176; 80053; 81001; 85025; 85610; 85730; 86850; 86900; 86901; 93005; 99285; 99285-25; J7040; U0002